=== PATIENT | female | born 1960 | race Caucasian/White ===

== ENCOUNTER → 2020-12-10 | Outpatient (CLI) | payer BC, OTHER | END | disposition home or self-care (01) | LOC: CFH 07:41 | PROVIDERS: ATTEND Internal Medicine Cardiovascular Disease | DX: I06.1 Rheumatic aortic insufficiency (principal); R94.31 Abnormal electrocardiogram [ECG] [EKG]; I25.89 Other forms of chronic ischemic heart disease; I49.40 Unspecified premature depolarization | CPT/HCPCS: 78452; 93017; 93306; A9502 ==

== ENCOUNTER 2021-01-16 09:54 | Day surgery (SDC) | payer OTHER ==
[~2021-01-16] VITALS: Ht 172.7 cm; Wt 100.0 kg
[2021-01-16 10:15] VITALS: BP 147/69
[2021-01-16] MEDS ORDERED: GABA300C PO (10:33)
[2021-01-16] MEDS ORDERED: ASPI-963 PO (10:34)
[2021-01-16 10:53] LABS: BASOPHILS % (AUTO) 1 % (0-1); EOSINOPHILS % (AUTO) 3 % (1-7); LYMPHOCYTES % (AUTO) 29 % (22-44); MEAN CORPUSCULAR HEMOGLOBIN 36.2 pg (27.0-34.8); MONOCYTES % (AUTO) 10 % (2-9); NEUTROPHILS % (AUTO) 58 % (42-75); PLATELET COUNT 222 x10^3/uL (130-400); RED BLOOD COUNT 4.45 x10^6/uL (3.82-5.3); RED CELL DISTRIBUTION WIDTH 13.3 % (9.6-15.2)
[2021-01-16 10:59] LABS: ANION GAP 6 mmol/L (5-15); CALCIUM 8.9 mg/dL (8.5-10.1); CHLORIDE 110 mmol/L (98-107); CREATININE 0.78 mg/dL (0.55-1.02)
[2021-01-16] MEDS ORDERED: SODIUM CHLORIDE 0.9% 1,000 ML IV SCH ×2 (11:00→12:00)
[2021-01-16] MEDS ORDERED: NITROGLYCERIN 5 MG/ML, 10ML ONE (11:06)
[2021-01-16] MEDS ORDERED: LIDOCAINE 2%, 20ML ONE (11:11)
[2021-01-16] MEDS ORDERED: FENTANYL PF 100 MCG/2ML ONE (11:11)
[2021-01-16] MEDS ORDERED: HEPARIN 1,000 UNITS/ML, 10ML ONE (11:12)
[2021-01-16] MEDS ORDERED: VERAPAMIL 2.5 MG/ML, 2ML ONE (11:12)
[2021-01-16] MEDS ORDERED: MIDAZOLAM 1 MG/ML, 2ML ONE (11:12)
== END 2021-01-16 13:00 | disposition home or self-care (01) ==
LOC: CACL 09:54
PROVIDERS: ATTEND Internal Medicine Cardiovascular Disease
DX: R93.1 Abnormal findings on diagnostic imaging of heart and coronary circulation (principal); G35 Multiple sclerosis; Z88.2 Allergy status to sulfonamides; Z88.1 Allergy status to other antibiotic agents; Z98.890 Other specified postprocedural states; Z79.82 Long term (current) use of aspirin; Z79.899 Other long term (current) drug therapy
CPT/HCPCS: 36415; 80048; 85025; 93458; 99156; C1769; C1894; J1644; J2250; J3010; Q9967